=== PATIENT | female | born 1935 | race Caucasian/White ===

== ENCOUNTER 2017-02-20 10:51 | Emergency (ER) | payer OTHER ==
[2017-02-20 11:08] VITALS: BP 135/70; PULSE 66; TEMP 98.1; BMI 21.6
[2017-02-20] MEDS ORDERED: ACETAMINOPHEN 325 MG TABLET (FP) PO ONE (12:47)
--- NOTE | 2017-02-20 12:47 | PDOC ---
History of Present Illness - General Chief Complaint: Pain Stated Complaint: LT SHOULDER PAIN Time Seen by Provider: 02/20/17 12:18 History Source: Patient Exam Limitations: No Limitations - History of Present Illness Initial Comments: 02/20/17 12:59 Patient is an 81-year-old female with past medical history of hypertension, HLD , hypothyroid, who presents to emergency department today complaining of left arm pain. Patient states that her pain began approximately 2 weeks ago. The pain comes and goes. Currently she rates the pain a 4 out of 10. She states that her arm feels weaker. She states that she has trouble lifting her arm over her head. She has taken ibuprofen today with minor relief. Denies fevers, chills , numbness and tingling down the arm, chest pain, shortness of breath, neck pain , midline tenderness, trauma, fall. Past History - Travel Traveled outside of the country in the last 30 days: No Close contact w/someone who was outside of country & ill: No - Past Medical History Allergies/Adverse Reactions: Allergies Allergy/AdvReac Type Severity Reaction Status Date / Time No Known Allergies Allergy Verified 02/20/17 11:06 Home Medications: Ambulatory Orders Atorvastatin Ca [Lipitor] 10 mg PO HS #0 tablet 10/09/12 Levothyroxine [Synthroid -] 100 mcg PO DAILY #0 tablet 10/09/12 Metoprolol Tartrate [Lopressor -] 25 mg PO BID #0 tab 10/09/12 Ibuprofen [Motrin -] 600 mg PO QID #28 tablet 02/20/17 COPD: No HTN: Yes Thyroid Disease: Yes - Immunization History Td Vaccination: Yes Immunization Up to Date: Yes - Suicide/Smoking/Psychosocial Hx Smoking Status: No Smoking History: Never smoked Years of Tobacco Use: 0 Number of Cigarettes Smoked Daily: 0 Cigars Per Day: 0 Review of Systems - Review of Systems Able to Perform ROS?: Yes Comments:: 02/20/17 13:02 CONSTITUTIONAL: Absent: fever, chills, diaphoresis, generalized weakness, malaise, loss of appetite HEENT: Absent: rhinorrhea, nasal congestion, throat pain, throat swelling, difficulty swallowing, mouth swelling, ear pain, eye pain, visual Changes CARDIOVASCULAR: Absent: chest pain, loss of consciousness, palpitations, irregular heart rate, peripheral edema RESPIRATORY: Absent: cough, shortness of breath, dyspnea with exertion, orthopnea, wheezing, stridor, hemoptysis GASTROINTESTINAL: Absent: abdominal pain, abdominal distension, nausea, vomiting, diarrhea, constipation, melena, hematochezia GENITOURINARY: Absent: dysuria, frequency, urgency, hesitancy, hematuria, flank pain, genital pain MUSCULOSKELETAL: Present: L arm pain Absent: arthralgia, joint swelling, fall, trauma to the arm. SKIN: Absent: rash, itching, pallor HEMATOLOGIC/IMMUNOLOGIC: Absent: easy bleeding, easy bruising, lymphadenopathy, frequent infections ENDOCRINE: Absent: unexplained weight gain, unexplained weight loss, heat intolerance, cold intolerance NEUROLOGIC: Absent: headache, focal weakness or paresthesias, dizziness, unsteady gait, seizure, mental status changes, bladder or bowel incontinence PSYCHIATRIC: Absent: anxiety, depression, suicidal or homicidal ideation, hallucinations. Is the patient limited [place]alan proficient: No *Physical Exam - Vital Signs Last Vital Signs Temp Pulse Resp BP Pulse Ox 98.1 F 66 19 135/70 97 02/20/17 11:06 02/20/17 11:06 02/20/17 11:06 02/20/17 11:06 02/20/17 11:06 - Physical Exam Comments: 02/20/17 13:03 GENERAL: Well developed, well nourished. Awake and alert. No acute distress. HEENT: Normocephalic, atraumatic. PERRLA, EOMI. No conjunctival pallor. Sclera are non- icteric. Moist mucous membranes. Oropharynx is clear. NECK: Supple. Full ROM. No JVD. Carotid pulses 2+ and symmetric, without bruits. No thyromegaly. No lymphadenopathy. CARDIOVASCULAR: Regular rate and rhythm. No murmurs, rubs, or gallops. Distal pulses are 2+ and symmetric. PULMONARY: No evidence of respiratory distress. Lungs clear to auscultation bilaterally. No wheezing, rales or rhonchi. ABDOMINAL: Soft. Non-tender. Non-distended. No rebound or guarding. No organomegaly. Normoactive bowel sounds. MUSCULOSKELETAL Normal range of motion at all joints including L shoulder, however pain with flexion and external rotation. GH joint intact, no pain to palpation. (+) apprehension test, (+) O'Omer's test, empty can test, Yergeson's test. (-) drop arm, apley scratch, speeds tests. No bony deformities or tenderness. No CVA tenderness. EXTREMITIES: No cyanosis. No clubbing. No edema. No calf tenderness. SKIN: Warm and dry. Normal capillary refill. No rashes. No jaundice. NEUROLOGICAL: Alert, awake, appropriate. Cranial nerves 2-12 intact. No deficits to light touch and temperature in face, upper extremities and lower extremities. No motor deficits in the in face, upper extremities and lower extremities. Normoreflexic in the upper and lower extremities. Normal speech. Toes are down- going bilaterally. Gait is normal without ataxia. PSYCHIATRIC: Cooperative. Good eye contact. Appropriate mood and affect. Medical Decision Making - Medical Decision Making 02/20/17 12:48 Pt. is an 81 y/o female with PMH of HTN, HLD, hypothryroid, who presents to the ED c/o L arm pain for two weeks. Exam shows positive shoulder tests including empty can, yergesons and O'Brians. Given L shoulder pain, will obtain EKG. Will also obtain L shoulder x-ray. Tylenol for pain. 02/20/17 13:36 EKG: Sinus Bradycardia rate 53. Possible RVH, normal intervals, normal axis. No acute ST-T wave changes X-Ray Shoulder: Negative for fracture, dislocation. (+) degenerative changes with sclerotic knob. Given results, most likely degenerative changes in the shoulder causing pain. No EKG changes. Exam does show positive shoulder tests including empty can, yergesons and O'briens. Possible impingment. Will d/c home with pain relief and ortho follow up. *DC/Admit/Observation/Transfer Diagnosis at time of Disposition: Shoulder pain, left Qualifiers: Chronicity: acute Qualified Code(s): M25.512 - Pain in left shoulder - Discharge Dispostion Disposition: HOME Condition at time of disposition: Stable Admit: No - Prescriptions Prescriptions: Ibuprofen [Motrin -] 600 mg PO QID #28 tablet - Referrals Referrals: Marisabel Shook MD [Primary Care Provider] - Hari Hilliard MD [Staff Physician] - - Patient Instructions Printed Discharge Instructions: DI for Shoulder Pain Additional Instructions: You have pain in your left shoulder. This is most likely due to chronic changes of your shoulder. Your x-ray was negative for broken bones or dislocation. Your EKG was normal. Please take ibuprofen 600 mg 4 times a day to help with her pain. You may apply heat to the shoulder to help with pain. Please follow-up with the orthopedic doctor in 2-3 days. Return to the emergency department if you have worsening pain in your shoulder, chest pain, numbness and tingling down her arm, or have any changes in your symptoms. - Post Discharge Activity
[2017-02-20] MEDS ORDERED: ACETAMINOPHEN 325 MG TABLET (FP) ONE (12:53)
--- NOTE | 2017-02-20 16:09 | EKG ---
Test Reason : Blood Pressure : / mmHG Vent. Rate : 053 BPM Atrial Rate : 053 BPM P-R Int : 120 ms QRS Dur : 088 ms QT Int : 450 ms P-R-T Axes : 041 002 038 degrees QTc Int : 422 ms SINUS BRADYCARDIA OTHERWISE NORMAL ECG WHEN COMPARED WITH ECG OF 06-OCT-2012 09:16, VENT. RATE HAS DECREASED Confirmed by MINH LEE MD ([id number]) on 02/20/2017 4:09:21 PM Referred By: Mikayla LOONEY Confirmed By:MINH LEE MD
== END 2017-02-20 14:07 | disposition home or self-care (01) ==
LOC: JERFT 10:51
DX: M25.512 Pain in left shoulder (principal); I10 Essential (primary) hypertension; E78.00 Pure hypercholesterolemia, unspecified; E03.9 Hypothyroidism, unspecified
CPT/HCPCS: 73030-TC-LT; 93005; 93010; 99281-25

== ENCOUNTER 2018-02-18 06:21 | Emergency (ER) | payer OTHER ==
[2018-02-18 06:47] VITALS: BP 172/79; PULSE 77; TEMP 98.2; BMI 31.2
--- NOTE | 2018-02-18 07:12 | PDOC ---
History of Present Illness - General Chief Complaint: Chest Pain Stated Complaint: PAIN Time Seen by Provider: 02/18/18 07:11 - History of Present Illness Initial Comments: 02/18/18 08:49 The patient is a 82 year old female with a history of HTN, HLD who presents for evaluation of arm pain and chest pain. The patient reports a 2-3 day history of left sided sharp chest pain with associated bilateral arm pain that is worse with movement of her arms prompting her presentation to the ED for further evaluation. She notes that the pain began after getting the flu and pneumonia vaccination last week. She denies similar symptoms in the past and otherwise denies fevers, chills, SOB, nausea, vomiting, abdominal pain, or changes with urination or bowel movements. Past History - Past Medical History Allergies/Adverse Reactions: Allergies Allergy/AdvReac Type Severity Reaction Status Date / Time No Known Allergies Allergy Verified 02/18/18 06:47 Home Medications: Ambulatory Orders Metoprolol Tartrate [Lopressor -] 25 mg PO BID #0 tab 10/09/12 Levothyroxine [Synthroid -] 75 mcg PO DAILY 02/18/18 Pravastatin Sodium [Pravachol (Nf)] 40 mg PO HS 02/18/18 COPD: No HTN: Yes Thyroid Disease: Yes - Immunization History Td Vaccination: Yes Immunization Up to Date: Yes - Suicide/Smoking/Psychosocial Hx Smoking Status: No Smoking History: Never smoked Years of Tobacco Use: 0 Number of Cigarettes Smoked Daily: 0 Cigars Per Day: 0 Review of Systems - Review of Systems Comments:: 02/18/18 08:53 Constitutional: No fevers, chills, fatigue, malaise HEENT: No Rhinorrhea, nasal congestion, visual changes Cardiovascular: Chest pain. No syncope, palpitations, lightheadedness Respiratory: No Cough, SOB, Hemoptysis, Gastrointestinal: No Abdominal pain, Nausea, Vomiting, Constipation, Diarrhea, Melena Genitourinary: No Dysuria, Frequency, Urgency, Hesitancy, Hematuria, Flank pain Musculoskeletal: Bilateral Arm pain. No Myalgia, arthralgia Skin: No rashes, itching, bruising, pallor Neurologic: No Headache, Dizziness, Numbness, Weakness, or Tingling Psychiatric: No Hallucinations. No SI or HI *Physical Exam - Vital Signs Last Vital Signs Temp Pulse Resp BP Pulse Ox 98.2 F 77 18 172/79 H 98 02/18/18 06:46 02/18/18 06:46 02/18/18 06:46 02/18/18 06:46 02/18/18 06:46 - Physical Exam Comments: 02/18/18 08:54 General Appearance: Nourished. No Apparent Distress HEENT: No Pharyngeal Erythema, Tonsillar Exudate, Tonsillar Erythema Neck: No Cervical Lymphadenopathy Respiratory/Chest: Lungs Clear, Normal Breath Sounds. Reproducible tenderness to palpation along the left sternal boarder. No Crackles, Rales, Rhonchi, Wheezing Cardiovascular: Regular Rhythm, Regular Rate. No Murmur, Gallops, Rubs Gastrointestinal/Abdominal: Normal Bowel Sounds, Soft. No Guarding, Rebound, Tenderness Musculoskeletal: No CVA Tenderness Extremity: Normal Capillary Refill Integumentary: Normal Color, Dry, Warm Neurologic: Fully Oriented, Alert, Normal Mood/Affect, Normal Response, Moderate Sedation - Procedure Monitoring Vital Signs: Procedure Monitoring Vital Signs Temperature 98.2 F 02/18/18 06:46 Pulse Rate 77 02/18/18 06:46 Respiratory Rate 18 02/18/18 06:46 Blood Pressure 172/79 H 02/18/18 06:46 O2 Sat by Pulse Oximetry (%) 98 02/18/18 06:46 Heart Score/ECG Review - History History: Slightly suspicious - Electrocardiogram EKG: Normal - Age Age: >/= 65 - Risk Factors Risk Factors Heart Score: Yes Hx Hypercholesterolemia, Yes Hx Hypertension Based on the list above the patient has:: 1-2 risk factors - Troponin Troponin: </= normal limit - Score Heart Score - Total: 3 #1 ECG reviewed & interpreted by me at: 08:58 General ECG Interpretation: Sinus Rhythm, Normal Rate, Normal Intervals, No acute ischemic changes ED Treatment Course - LABORATORY CBC & Chemistry Diagram: 02/18/18 07:15 02/18/18 07:15 Medical Decision Making - Medical Decision Making 02/18/18 08:56 The patient is a 82 year old female with a history of HTN, HLD who presents for evaluation of arm pain and chest pain. Differential includes but is not limited to: ACS, Pneumonia, Musculoskeletal, Infections, Metabolic Derangement. Given the patient's history and physical exam, it is likely the patient's symptoms are musculoskeletal in nature and related to her vaccinations. However, we will obtain a cbc, cmp, troponin, ekg, chest plain film to evaluate further. We will treat with tylenol and continue to monitor and reassess while here in the ED. 02/18/18 10:53 CBC, cmp, troponin and 2nd troponin are unremarkable. Chest plain film is unremarkable. The patient reports significant improvement in her symptoms after a lidocaine patch. We discussed the case with Dr. Tucker who is covering for the patient's primary care provider Dr. Shook who agrees that the patient' s symptoms are very musculoskeletal in nature and is comfortable with close primary care provider follow up early this week. We are comfortable discharging the patient home with primary care provider and cardiology follow up. We discussed the results, plan, and return precautions with the patient who voiced understanding and is agreeable with the plan. *DC/Admit/Observation/Transfer Diagnosis at time of Disposition: Shoulder pain, left Qualifiers: Chronicity: unspecified Qualified Code(s): M25.512 - Pain in left shoulder Chest pain Qualifiers: Chest pain type: unspecified Qualified Code(s): R07.9 - Chest pain, unspecified - Discharge Dispostion Disposition: HOME Condition at time of disposition: Stable Decision to Admit order: No - Referrals Referrals: Marisabel Shook MD [Primary Care Provider] - - Patient Instructions Printed Discharge Instructions: DI for Atypical Chest Pain Additional Instructions: Please return to the ER if you experience concerning or worsening symptoms including worsening difficulty breathing, weakness, or chest pain. Your lab results were normal here in the ER. Please call to schedule a follow up appointment with your primary care provider within 2-3 days to discuss your ER visit and further management of your symptoms. - Post Discharge Activity
[2018-02-18] MEDS ORDERED: ACETAMINOPHEN 1000 MG/100 ML VIAL (NON FORMULARY) IVPB ONE (07:24)
[2018-02-18] MEDS ORDERED: ACETAMINOPHEN INJECTION 100 ML IVPB ONE (07:31)
[2018-02-18 07:36] LABS: URINE APPEARANCE CLEAR; URINE BILIRUBIN NEGATIVE (<2.0 mg/dL); URINE COLOR STRAW; URINE GLUCOSE (UA) NEGATIVE (NEGATIVE); URINE KETONE NEGATIVE (NEGATIVE); URINE LEUK ESTERASE NEGATIVE (NEGATIVE); URINE NITRITE NEGATIVE (NEGATIVE); URINE PROTEIN NEGATIVE (NEGATIVE); URINE UROBILINOGEN NEGATIVE mg/dL (0.2-1.0)
[2018-02-18 07:56] LABS: BASO % 0.7 % (0-2.0); EOS % 1.4 % (0-4.5); HEMATOCRIT 36.7 % (32.4-45.2); LYMPH % 22.6 % (8-40); MCH 28.7 pg (25.7-33.7); MCHC 32.6 g/dl (32.0-36.0); MEAN PLT VOLUME 9.1 fl (7.5-11.1); MONO % 9.1 % (3.8-10.2); NEUT % 66.2 % (42.8-82.8); PLATELET COUNT 259 K/MM3 (134-434); RBC 4.17 M/mm3 (3.60-5.2); RDW 13.1 % (11.6-15.6); WHITE BLOOD COUNT 9.8 K/mm3 (4.0-10.0)
--- NOTE | 2018-02-18 08:25 | PDOC ---
Attending Attestation - Resident Resident Name: Franklin Ellis - ED Attending Attestation I have performed the following: I have examined & evaluated the patient, The case was reviewed & discussed with the resident, I agree w/resident's findings & plan - HPI HPI: 02/18/18 09:23 82 YOF with h/o HTN, HLD, and hypothyroidism presenting with left sided reproducible CP, bilateral upper arm pains x 2-3 days, worse in right upper arm. denies trauma or exertional activity did note injection of influenza/pna vaccine by PMD last week. PMD Dr. Shook 02/18/18 09:24 02/18/18 11:21 - Physicial Exam PE: 02/18/18 09:26 NAD, well appearing, PERRL, EOMI, MMM, nl conjunctiva, anicteric; neck supple. lungs clear, +reproducible left anterior chest wall TTP, Right arm/upper deltoid TTP, ROM intact. RRR, abdomen soft nontender. SCHMIDT x4, no focal neuro deficits. No peripheral edema. normal color for ethnicity, WWP. - Medical Decision Making 02/18/18 09:27 See HPI for details DDx chest pain: ACS, PUD, esophageal spasm, GERD, costochondritis, pneumonia, pleurisy, pericarditis/myocarditis. dehydration, electrolyte/metabolic derangements. msk strain, injection site pain. clinically considered but doubt PE/dissection with sx. Vital signs reviewed, wnl. mild hypertension Prior notes reviewed, including admissions, discharges and consultations. laboratory results and imaging reviewed, basic labs and lytes wnl, cxr with central congestion, but normal lungs and not likely precipitant of clinical sx today Cardiac panel_neg trops EKG normal sinus rhythm, no interval abnormalities, narrow QRS, ST and T wave segments and morphology normal. Nonspecific T wave abnormality, flattening in III only ED course: analgesia, very reproducible chest wall and deltoid tenderness, with recent injection site for vaccinations as outpatient. analgesia achieved with tylenol/toradol and topical lidoderm, she prefers lidoderm patch (sent to pharmacy) no neurovascular deficits, suggesting more costochondritis and muscle aches 2/2 injections. there is no radiation of pain or s/s suggestive of cardiac etiology , no priors or intervention 2 trops neg, EKG unchanged Heart score only 3 with age and 2 comorbidities, so low risk category for MACE/ chest pain. PMD updated, Dr. Shook, seen by Dr Tucker here, agreeable to DC and outpatient followup Dispo: I discussed the physical exam findings, ancillary test results and final diagnoses with the patient. I answered all of the patient's questions. The patient was satisfied with the care received and felt comfortable with the discharge plan and treatment plan. The patient will return to the Emergency Department with any new, persistent or worsening symptoms. 02/18/18 11:23 Heart Score/ECG Review - History History: Slightly suspicious - Electrocardiogram EKG: Normal - Age Age: >/= 65 - Risk Factors Risk Factors Heart Score: Yes Hx Hypercholesterolemia, Yes Hx Hypertension Based on the list above the patient has:: 1-2 risk factors - Troponin Troponin: </= normal limit - Score Heart Score - Total: 3 - ECG Impressions Normal ECG: Yes Comment:: 02/18/18 11:24 EKG normal sinus rhythm, no interval abnormalities, narrow QRS, ST and T wave segments and morphology normal. Nonspecific T wave abnormality, flattening in III only
[2018-02-18 08:30] LABS: ALBUMIN 3.4 g/dl (3.4-5.0); ALK PHOS 102 U/L (45-117); ANION GAP 8 MMOL/L (8-16); BILIRUBIN,TOTAL 0.3 mg/dL (0.2-1); BLOOD UREA NITROGEN 24 mg/dL (7-18); CALCIUM 9.1 mg/dL (8.5-10.1); CHLORIDE 104 mmol/L (98-107); CO2 26 mmol/L (21-32); CREATININE 0.8 mg/dL (0.55-1.3); GLUCOSE,RANDOM 106 mg/dL (74-106); POTASSIUM 3.8 mmol/L (3.5-5.1); SGOT/AST 14 U/L (15-37); SGPT/ALT 18 U/L (13-61); SODIUM 138 mmol/L (136-145); TOT PROT 7.6 g/dl (6.4-8.2)
[2018-02-18 08:32] LABS: INR 0.95 (0.83-1.09); PROTHROMBIN TIME (PATIENT) 11.2 SEC (9.7-13.0)
[2018-02-18] MEDS ORDERED: LIDOCAINE 5% TOPICAL PATCH TP ONE (09:23)
[2018-02-18] MEDS ORDERED: KETOROLAC TROMETHAMINE 15 MG/ML VIAL IVPUSH ONE (09:23)
[2018-02-18] MEDS ORDERED: LIDOCAINE 5% TOPICAL PATCH ONE (09:34)
[2018-02-18] MEDS ORDERED: KETOROLAC TROMETHAMINE 15 MG/ML VIAL ONE (09:34)
--- NOTE | 2018-02-19 11:19 | EKG ---
Test Reason : Blood Pressure : / mmHG Vent. Rate : 074 BPM Atrial Rate : 074 BPM P-R Int : 154 ms QRS Dur : 090 ms QT Int : 420 ms P-R-T Axes : 047 -05 025 degrees QTc Int : 466 ms NORMAL SINUS RHYTHM MINIMAL VOLTAGE CRITERIA FOR LVH, MAY BE NORMAL VARIANT BORDERLINE ECG WHEN COMPARED WITH ECG OF 18-FEB-2018 06:50, NO SIGNIFICANT CHANGE WAS FOUND Confirmed by ROSA SMART, MINH ([id number]) on 02/19/2018 11:18:49 AM Referred By: Confirmed By:MINH LEE MD
--- NOTE | 2018-02-19 11:20 | EKG ---
Test Reason : Blood Pressure : / mmHG Vent. Rate : 073 BPM Atrial Rate : 073 BPM P-R Int : 152 ms QRS Dur : 094 ms QT Int : 408 ms P-R-T Axes : 054 -07 025 degrees QTc Int : 449 ms NORMAL SINUS RHYTHM MODERATE VOLTAGE CRITERIA FOR LVH, MAY BE NORMAL VARIANT BORDERLINE ECG WHEN COMPARED WITH ECG OF 20-FEB-2017 13:11, NO SIGNIFICANT CHANGE WAS FOUND Confirmed by MINH LEE MD ([id number]) on 02/19/2018 11:20:13 AM Referred By: Confirmed By:MINH LEE MD
== END 2018-02-18 11:10 | disposition home or self-care (01) ==
LOC: JER 06:21
PROC: 3E033NZ Introduction of Analgesics, Hypnotics, Sedatives into Peripheral Vein, Percutaneous Approach (ICD-10-PCS; principal; 2018-02-18)
PROC: 3E0333Z Introduction of Anti-inflammatory into Peripheral Vein, Percutaneous Approach (ICD-10-PCS; 2018-02-18)
DX: M25.512 Pain in left shoulder (principal); R07.9 Chest pain, unspecified
CPT/HCPCS: 36415; 71045-TC-FY; 80053; 81003; 81015; 82550; 84484; 85025; 85610; 93005; 93010; 96374; 96375; 99282-25; J0131